=== PATIENT | male | born 1995 | race Caucasian/White ===

== ENCOUNTER 2017-12-02 16:39 | Emergency (ER) | payer OTHER ==
[~2017-12-02] VITALS: Ht 195.6 cm; Wt 144.6 kg
[2017-12-02 16:51] VITALS: TEMP 36.7; Ht 195.6 cm; Wt 144.6 kg
[2017-12-02] MEDS ORDERED: KETOROLAC TROMETHAMINE 30 MG/ML VIAL IV STA (17:09)
[2017-12-02] MEDS ORDERED: MoRPHine SULFATE 10 MG/ML CARP/VIAL IV STA (17:09)
[2017-12-02] MEDS ORDERED: LIDOCAINE HCL 2% JELLY 30 ML TUBE EXT PRN (17:15)
[2017-12-02] MEDS ORDERED: DIPHTHERIA/TETANUS/PERTUSSIS 0.5 ML SYR/VIAL IM. ONE (17:15)
[2017-12-02] MEDS ORDERED: OXYC-57 PO (19:27)
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
[2017-12-02 20:06] VITALS: BP 115/71; PULSE 100; O2SAT 96
== END 2017-12-02 20:07 | disposition home or self-care (01) ==
LOC: C.EDB 16:40 → C.EDA 20:07
DX: T14.8XXA Other injury of unspecified body region, initial encounter (principal); V28.4XXA Motorcycle driver injured in noncollision transport accident in traffic accident, initial encounter; Y92.410 Unspecified street and highway as the place of occurrence of the external cause; J45.909 Unspecified asthma, uncomplicated; Z88.0 Allergy status to penicillin